=== PATIENT | female | born 1950 | race Caucasian/White ===

== ENCOUNTER 2021-06-08 16:08 | Emergency (ER) | payer SELFPAY | END 2021-06-08 16:17 | disposition left against medical advice (07) | LOC: ER 16:09 | DX: R06.02 Shortness of breath (principal); Z53.21 Procedure and treatment not carried out due to patient leaving prior to being seen by health care provider ==

== ENCOUNTER 2022-10-10 11:22 | Emergency (ER) | payer MEDICARE, BC ==
[~2022-10-10] VITALS: Ht 147.3 cm; Wt 71.8 kg
[2022-10-10] MEDS ORDERED: morphine 4 MG/ML inj SYRINge IV PRN (13:25)
[2022-10-10] MEDS ORDERED: diazepam inj 5 MG/ML inj. IV ONE (13:25)
[2022-10-10] MEDS ORDERED: ondansetron/PF 4mg/2ml inj IV ONE (13:25)
[2022-10-10] MEDS ORDERED: normal saline 1000ML IV soln IVB ONE (13:25)
[2022-10-10 14:07] LABS: BASOPHILS # (AUTO) 0.1 X10'3 (0-0.2); BASOPHILS % (AUTO) 0.8 % (0-1); EOSINOPHILS # (AUTO) 0.2 X10'3 (0-0.9); EOSINOPHILS % (AUTO) 1.9 % (0-6); HEMATOCRIT 37.5 % (35.0-45.0); HEMOGLOBIN 12.4 g/dl (12.0-16.0); LYMPHOCYTES # (AUTO) 2.2 X10'3 (1.1-4.8); LYMPHOCYTES % (AUTO) 25.7 % (21-51); MEAN CORPUSCULAR HEMOGLOBIN 30.8 PG (27.0-31.0); MEAN CORPUSCULAR HGB CONC 33.1 g/dL (33.0-36.5); MEAN CORPUSCULAR VOLUME 93.1 FL (78-98); MEAN PLATELET VOLUME 8.6 FL (7.4-10.4); MONOCYTES # (AUTO) 0.6 X10'3 (0-0.9); NEUTROPHILS # (AUTO) 5.5 X10'3 (1.8-7.7); NEUTROPHILS % (AUTO) 64.6 % (42-75); PLATELET COUNT 228 X10'3 (140-440); RED BLOOD COUNT 4.03 X10'6 (4.20-5.60); RED CELL DISTRIBUTION WIDTH 13.7 % (11.5-14.5); WHITE BLOOD COUNT 8.5 X10'3 (4.5-11.0)
[2022-10-10] MEDS ORDERED: iohexol 350MG/ML 100ml bottle IV ONE (14:08)
[2022-10-10 14:19] LABS: ALANINE AMINOTRANSFERASE 27 U/L (12-78); ALBUMIN 3.6 G/DL (3.4-5.0); ALBUMIN/GLOBULIN RATIO 1.1 (1.1-1.5); ALKALINE PHOSPHATASE 92 IU/L (46-116); ANION GAP 12 (8-16); ASPARTATE AMINO TRANSFERASE 23 U/L (10-37); BILIRUBIN,TOTAL 0.5 MG/DL (0.1-1.0); BLOOD UREA NITROGEN 19 MG/DL (7-18); BUN/CREATININE RATIO 23.5 (6.6-38.0); CALCIUM 9.2 MG/DL (8.5-10.1); CHLORIDE 105 MMOL/L (99-107); CREATININE 0.81 MG/DL (0.40-0.90); GLUCOSE 86 MG/DL (70-104); POTASSIUM 3.6 MMOL/L (3.5-5.1); SODIUM 140 MMOL/L (135-145); TOTAL PROTEIN 6.8 G/DL (6.4-8.2); eGFR 70 ML/MIN
[2022-10-10] MEDS ORDERED: iohexol 300mg/ml 100ml inj. ONE (15:35)
[2022-10-10] MEDS ORDERED: DIAZ5TAB PO (16:56)
[2022-10-10 17:13] VITALS: BP 138/78
== END 2022-10-10 17:16 | disposition home or self-care (01) ==
LOC: ER 11:22
DX: S32.010A Wedge compression fracture of first lumbar vertebra, initial encounter for closed fracture (principal); Z88.5 Allergy status to narcotic agent; Z88.8 Allergy status to other drugs, medicaments and biological substances; Z79.899 Other long term (current) drug therapy; W19.XXXA Unspecified fall, initial encounter; Y93.89 Activity, other specified; Y92.89 Other specified places as the place of occurrence of the external cause; Y99.8 Other external cause status
CPT/HCPCS: 36415; 72131; 74177; 80053; 85025; 85610; 86885; 86900; 86901; 96361; 96374; 96375; 99285; J2270; J2405; J3490; J7030; Q9967

== ENCOUNTER 2023-02-20 07:57 | Day surgery (SDC) | payer MEDICARE, BC ==
[2023-02-20] VITALS (8 sets, daily range): BP systolic 91–121; BP diastolic 53–67
[~2023-02-20] VITALS: Ht 147.3 cm; Wt 68.5 kg
[~2023-02-20 07:57] MED LIST: DIAZ5TAB PO
[2023-02-20] MEDS ORDERED: ceFAZolin inj. 2,000 MG in normal saline soln 50 ML IV ONE (08:15)
[2023-02-20] MEDS ORDERED: normal saline 1000ml 1,000 ML IV PRN (08:15)
[2023-02-20] MEDS ORDERED: ceFAZolin inj. 2,000 MG in dextrose 5%-water 100 ML IV ONE (08:22)
[2023-02-20] MEDS ORDERED: [UNRECOGNIZED DRUG - CODE] PO (08:47)
[2023-02-20] MEDS ORDERED: ATOR20TA66 PO (08:47)
[2023-02-20] MEDS ORDERED: GABA-534 PO (08:47)
[2023-02-20] MEDS ORDERED: CLON-568 PO (08:47)
[2023-02-20] MEDS ORDERED: TRAM50TA2 PO (08:47)
[2023-02-20] MEDS ORDERED: PANT40TA54 PO (08:47)
[2023-02-20 08:50] LABS: BASOPHILS # (AUTO) 0.1 X10'3 (0-0.2); BASOPHILS % (AUTO) 0.6 % (0-1); EOSINOPHILS % (AUTO) 0.3 % (0-6); HEMOGLOBIN 13.5 g/dl (12.0-16.0); LYMPHOCYTES # (AUTO) 2.6 X10'3 (1.1-4.8); LYMPHOCYTES % (AUTO) 27.6 % (21-51); MEAN CORPUSCULAR HGB CONC 32.9 g/dL (33.0-36.5); MEAN CORPUSCULAR VOLUME 94.3 FL (78-98); MEAN PLATELET VOLUME 9.8 FL (7.4-10.4); MONOCYTES # (AUTO) 0.6 X10'3 (0-0.9); MONOCYTES % (AUTO) 6.6 % (2-12); NEUTROPHILS # (AUTO) 6.1 X10'3 (1.8-7.7); NEUTROPHILS % (AUTO) 64.9 % (42-75); PLATELET COUNT 192 X10'3 (140-440); RED BLOOD COUNT 4.35 X10'6 (4.20-5.60); RED CELL DISTRIBUTION WIDTH 13.4 % (11.5-14.5); WHITE BLOOD COUNT 9.4 X10'3 (4.5-11.0)
[2023-02-20] MEDS ORDERED: fentaNYL/PF 50MCG/1 ML 2ML syringe ONE ×2 (09:21→11:28)
[2023-02-20] MEDS ORDERED: midazolam 1 mg/ML 2ml injection ONE ×2 (09:21→11:28)
[2023-02-20] MEDS ORDERED: LIDOcaine 1% 30ml preserv. free vial ONE (09:21)
[2023-02-20] MEDS ORDERED: diphenhydrAMINE 50 mg/ml inj ONE (09:21)
[2023-02-20] MEDS ORDERED: iohexol 350MG/ML 100ml bottle IV ONE (10:36)
[2023-02-20] MEDS ORDERED: gabapentin 400mg capsule PO ONE (12:13)
== END 2023-02-20 14:20 | disposition home or self-care (01) ==
LOC: SSTAY O 07:57
PROVIDERS: ATTEND Radiology Vascular & Interventional Radiology
DX: M80.08XA Age-related osteoporosis with current pathological fracture, vertebra(e), initial encounter for fracture (principal); M54.50 Low back pain, unspecified; M48.36 Traumatic spondylopathy, lumbar region; G35 Multiple sclerosis; Z79.01 Long term (current) use of anticoagulants; Z88.8 Allergy status to other drugs, medicaments and biological substances; Z88.5 Allergy status to narcotic agent; Z79.899 Other long term (current) drug therapy
CPT/HCPCS: 22514; 36415; 85025; 85610; 88305; 88341; 88342; 99152; 99153; C1713; J1200; J2250; J3010; J3490; J7030; Q9967; 88173; A4620